=== PATIENT | female | born 1990 | race Caucasian/White ===

== ENCOUNTER 2019-10-24 14:36 | Inpatient (IN) ==
--- NOTE | 2019-10-24 17:02 | History & Physical Report ---
OB - H&P: HPI Antepartum - History of Present Illness Chief complaint: contractions History of present illness: 29 yo (prior twin ) @ 38 2/ presented with complaint of contractions and diagnosis of active labor. care through [facility] in [place], and records unavailable at time of presentation or delivery. Patient reports a history of a previous CS with G1 , and was scheduled for an elective repeat CS on 10/29/19. She had a appointment earlier today but was not checked. A few hours after her appointment, she presented to [facility] with complaints of contractions and cervix was 8cm. She declined to and was being admitted for an immediate CS but cervix was complete and she was put into a delivery room. [facility] History I have reviewed the patient's past medical history: Yes *Have you ever received a pneumonia vaccine?: No *Have you received a flu vaccine this season?: No - *Social History Tobacco Type: cigarettes # Packs/Day (cigarettes): 1 Alcohol Intake: never Substance Use Type: denies use *Occupational Status:: employed *Travel in the last 8 weeks: None Family Hx:: No significant family history Review of Systems - Review of Systems CONSTITUTIONAL: no fever/chills HEENT: no oral lesions PULMONARY: no shortness of breath or difficulty breathing CV: no racing heart, palpitations or chest pain ABD: no abdominal pain, N/V : + contractions SKIN: no new rash or skin lesions EXT: no edema NEURO: no mental status changes PSYCH: no current anxiety/depression OB - H&P: Exam - Physical Exam Narrative: CONSTITUTIONAL: no acute distress HEENT: mucous membranes moist PULMONARY: breathing unlabored without audible wheezes CV: no tachycardia or visible JVD; normal LE peripheral pulses ABD: soft, NT/ND, no guarding. Gravid uterus. : cervix 8/100/+1 SKIN: no visible rash or lesions HEME: no lymphadenopathy EXT: 1+ edema LEs NEURO: alert/oriented, no altered mental status PSYCH: appropriate mood and demeanor without visible anxiety/depression NST: Basline: 130 Variability: moderate Accelerations: yes Decelerations: no Impression: Reactive, Category 1 OB - A/P Antepartum (1) 38 weeks gestation of Current visit: Yes Status: Acute (2) with care elsewhere Current visit: Yes Status: Acute (3) Active labor at term Current visit: Yes Status: Acute (4) Previous section Current visit: Yes Status: Acute (5) Anemia complicating Current visit: Yes Status: Acute (6) Tobacco smoking complicating Current visit: Yes Status: Acute - Additional Plan Additional Information:: Admitted for active labor records request to primary MD Anticipate successful
--- NOTE | 2019-10-24 17:31 | Procedure Note ---
- Delivery Note Delivery Date:: 10/24/19 Delivery Time:: 15:24 Anesthesia Type: None Was labor medically induced?: No Induction method: none Gestational age (weeks): 38 delivered prior to 39 weeks?: Yes Justification for early elective delivery:: Active Labor Infant Gender: Male at 1 minute: 8 at 5 minutes: 9 LAC or MLE?: LAC Delivery Procedure:: Spontaneous vaginal delivery of liveborn male infant over intact perineum. Delivery uncomplicated Nuchal cord x1 reduced on perineum; no shoulder dystocia with delivery Infant taken to warmer immediately after umbilical cord clamped/cut, with standard nursing assessment performed Apgars: 8 & 9 Placenta spontaneously expressed and examined; noted to be complete/intact. Vulva, vagina, and cervix inspected; second degree laceration repaired with vicryl using lidocaine 1% without epi EBL: 300 cc All sponge/needle/instrument counts correct at conclusion of procedure Disposition: Mom/baby stable to recovery in LDRP Laceration:: vaginal Placental Delivery Description: Spontaneous
[2019-10-24 18:31] LABS: Basophils % 0.1 % (0.1-2.0); Eosinophils % 0.1 % (0.1-12.0); Hematocrit 30.9 % (37.0-47.0); Hemoglobin 9.4 g/dL (12.2-16.2); Lymphocytes # 0.9 K/mm3 (0.7-4.5); Mean Corpuscular HGB Conc 30.6 g/dL (31.8-35.4); Mean Corpuscular Volume 77.9 fl (81-99); Mean Platelet Volume 9.5 fl (7.4-10.4); Monocytes # 0.4 K/mm3 (0.1-1.0); Monocytes % 2.7 % (1.7-9.3); Neutrophils # 13.3 K/mm3 (1.8-7.8); Neutrophils % 91.1 % (37.0-80.0); Platelet Count 226 K/mm3 (142-424); Red Blood Count 3.96 M/mm3 (4.20-5.40); Red Cell Distribution Width 17.5 % (11.5-17.5); White Blood Count 14.5 K/mm3 (4.8-10.8)
[2019-10-24 18:57] LABS: Hypochromasia 3+; Lymphocytes % 6 % (10-50); Monocytes % 1 % (2-9); Neutrophils % 93 % (42-76); Total Cells Counted 100
[2019-10-24 19:31] LABS: Microscopic, Urine URINE MICROSCOPIC (MICROSCOPIC)
[2019-10-24 19:35] LABS: Appearance,Urine CLEAR (Clear); Blood, Urine Negative (Negative); Color,Urine YELLOW (Yellow); Glucose,Urine (UA) Negative (Negative); Ketones,Urine Negative (Negative); Leukocyte Esterase,Urine Negative (Negative); PH,Urine 6.5 (5.0-8.5); Protein,Urine TRACE (Negative)
[2019-10-24 19:36] LABS: Bilirubin,Urine Negative (Negative)
[2019-10-24 19:42] LABS: Amphetamine/Metha Screen,Urine Negative ng/mL (<1000); Barbiturates Screen,Urine Negative ng/mL (<200); Benzodiazepines Screen,Urine Negative ng/mL (<200); Cannabinoid Screen,Urine Negative ng/mL (<50); Cocaine Screen,Urine Negative ng/mL (<300); Methadone Screen,Urine Negative ng/mL (<300); Opiate Screen,Urine Negative ng/mL (<300); Phencyclidine Screen,Urine Negative ng/mL (<25)
[2019-10-24 19:47] LABS: Mucus,Urine 3+ /lpf
[2019-10-24 19:48] LABS: Bacteria,Urine Trace /lpf
[2019-10-25 06:32] LABS: Hemoglobin 6.6 g/dL (12.2-16.2)
[2019-10-25 08:09] LABS: Hematocrit 21.8 % (37.0-47.0)
--- NOTE | 2019-10-25 09:14 | Progress Note ---
Internal Medicine - PN: Subj *Date: 10/25/19 *Time: 09:11 Interval history: PPD #1 Acute on chronic anemia, with Hgb post-delivery 6.6 Patient is asymptomatic with current status but was advised for transfusion due to severe anemia hgb also likely overestimated due to patient smoking status Exam Vital signs and Labs for Last 24 Hours: Temp Pulse Resp BP Pulse Ox 98.4 F 58 L 16 135/82 99 10/25/19 04:40 10/25/19 04:40 10/25/19 04:40 10/25/19 04:40 10/25/19 04:40 Laboratory Results - last 24 hr 10/24/19 15:00: Urine Color Yellow, Urine Appearance Clear, Urine pH 6.5, Ur Specific Confluence 1.020, Urine Protein Trace, Urine Glucose (UA) Negative, Urine Ketones Negative, Urine Blood Negative, Urine Nitrate Negative, Urine Bilirubin Negative, Urine Urobilinogen 1.0, Ur Leukocyte Esterase Negative, Urine WBC 10- 20, Ur Squamous Epith Cells 5-10, Urine Bacteria Trace, Urine Mucus 3+ 10/24/19 15:00: Urine Opiates Screen Negative, Urine Methadone Screen Negative, Ur Barbituates Screen Negative, Ur Phencyclidine Scrn Negative, Ur Amphetamines Screen Negative, U Benzodiazepines Scrn Negative, Urine Cocaine Screen Negative, U Marijuana (THC) Screen Negative 10/24/19 18:22: WBC 14.5 H, RBC 3.96 L, Hgb 9.4 L, Hct 30.9 L, MCV 77.9 L, MCH 23.8 L, MCHC 30.6 L, RDW 17.5, Plt Count 226, MPV 9.5, Neut % (Auto) 91.1 H, Lymph % (Auto) 6.0 L, Atlantic % (Auto) 2.7, Eos % (Auto) 0.1, Baso % (Auto) 0.1, Neut # (Auto) 13.3 H, Lymph # (Auto) 0.9, Atlantic # (Auto) 0.4, Eos # (Auto) 0.0, Baso # (Auto) 0.0, Total Counted 100, Neutrophils % (Manual) 93 H, Lymphocytes % (Manual) 6 L, Monocytes % (Manual) 1 L, Platelet Estimate Normal, Hypochromasia 3+, Microcytosis 1+ 10/24/19 18:22: Blood Type O Positive, Antibody Screen Negative, Crossmatch (AHG) See Detail 10/25/19 06:08: Hgb 6.6 L* D, Hct 21.8 L* 10/25/19 08:58: Blood Type Confirm O Positive I & O for Last 24 hours: Intake & Output 10/22/19 10/23/19 10/24/19 10/25/19 11:59 11:59 11:59 11:59 Intake Total 1500 / 1500 Balance 1500 / 1500 Weight 150 lb Narrative: CONSTITUTIONAL: no acute distress HEENT: mucous membranes moist PULMONARY: breathing unlabored without audible wheezes CV: no tachycardia or visible JVD; normal LE peripheral pulses ABD: soft, NT/ND, no guarding : fundus firm at/below umbilicus SKIN: no visible rash or lesions EXT: 1+ edema LEs NEURO: alert/oriented, no altered mental status PSYCH: appropriate mood and demeanor without visible anxiety/depression Assessment and Plan (1) 38 weeks gestation of Current visit: Yes Status: Acute Category: Medical Code(s): Z3A.38 - 38 weeks gestation of (2) with care elsewhere Current visit: Yes Status: Acute Category: Medical Code(s): Z34.90 - Encounter for supervision of normal , unspecified, unspecified trimester (3) Active labor at term Current visit: Yes Status: Acute Category: Medical (4) Previous section Current visit: Yes Status: Acute Category: Surgical Code(s): Z98.891 - History of uterine scar from previous surgery (5) Anemia complicating Current visit: Yes Status: Acute Category: Medical Code(s): O99.019 - Anemia complicating , unspecified trimester (6) Anemia associated with acute blood loss Current visit: Yes Status: Acute Category: Medical Code(s): D62 - Acute posthemorrhagic anemia (7) Tobacco smoking complicating Current visit: Yes Status: Acute Category: Medical Code(s): O99.330 - Sm oking (tobacco) complicating , unspecified trimester - Assessment and plan all Dx Assessment and Plan for all problems:: Transfuse 2 units PRBCs, with repeat Hgb following transfusion Otherwise routine care
--- OUTSIDE RECORDS SUMMARY | 2019-10-25 10:48 | External Medical Summary | Continuity of Care Document ---
:1990 Author Organization [facility] Address [address] [place] [address] Phone Care Team Providers Name Role Phone Zachary Attending Provider Girma Paez Primary Care Provider Allergies, Adverse Reactions, Alerts No known allergies. Medications Medication Status Dose Units Route Sig Qty Days Start End Instruct ions Date Date Pnv Active 1 TAB Oral Daily October No.95/Ferrou 2018 s Fum/Folic 2:16am Ac Problems Active Problems Medical Problem Onset Date Status with care Active elsewhere Active labor at term Active 38 weeks gestation of Active Anemia complicating Active Tobacco smoking complicating Active Previous section Active Anemia associated with acute blood Activ e loss Chief Complaint and Reason for Visit Chief Complaint Labor Reason for Visit 38 weeks gestation of pregna ncy Active labor at term Anemia associated with acute blood loss Anemia complicating pregnanc y with care elsewhere Previous section Tobacco smoking complicating Encounters Encounter Location(s) Arrival/Admit Date Discharge/Depart Date Provider(s) Registered [facility] Physician October 24, 2019 [facility] 2:52pm MD Dilma Sanchez Registered [facility] Physician October 25, 2019 [facility] 10:44am Recent Diagnosis Onset Date 38 weeks gestation of Active labor at term Anemia associated with acute blood loss Anemia complicating with care elsewhere Previous section Tobacco smoking complicating Assessments Diagnosis Onset Date Resolution Status 38 weeks gestation of acute Active labor at term acute Anemia associated with acute acute blood loss Anemia complicating acute with acute care elsewhere Previous section acute Tobacco smoking acute complicating Functional Status No Functional Status information available Goals Goals may be documented in an alternate section. Mental Status No Mental Status Information Available Medical Equipment No Medical Equipment Information available Insurance Providers Guarantor Yamini Bach Pedro Address [address] [facility] [address] Contact Info. Home Phone: Payer Policy Id Coverage Id Subscriber's Subscriber Id Effective E xpiration Name Date Date Bakari [id number] Jesus Santos [id number] Blue Access Self Pay Self N/A Plan of Treatment Future Tests Future scheduled test information is unavailable Pending Tests Pending diagnostic test information is unavailable Future Visits Future appointment information is unavailable Referrals to Other Providers Reason for Referral Start Provider Provider Contact Provider Address Referral Date Information Admission to [facility] October [address] Future Procedures Future procedure information is unavailable Future Medications Future medication information is unavailable Patient Instructions Patient instructions are unavailable Social History Assigned Sex Female Vital Signs Vital Reading Result Reference Range Collection Date/ Time Height 165.1 cm October 24 3:00pm Weight 68.03 kg October 24 3:00pm Body Temperature 98.0 [degF] 97.6-99.6 October 25, 2 019 10:26am Heart Rate 58 /min 60-October 25 10:26am Respiratory rate 18 /min -October 25, 2 019 10:26am Oxygen saturation by 100 % 95-100 October Pulse oximetry 10:26am BP Systolic 136 mm[Hg] 110-140 October 25 10:26am BP Diastolic 82 mm[Hg] 60-90 October 25 10:26am BMI (Body Mass Index) 25.0 kg/m2 October 242018 3:00pm
[2019-10-25 14:51] LABS: Hematocrit 28.2 % (37.0-47.0)
[2019-10-25 14:55] LABS: Hemoglobin 8.7 g/dL (12.2-16.2)
[2019-10-26 06:52] LABS: Hematocrit 25.5 % (37.0-47.0)
--- NOTE | 2019-10-26 12:03 | Discharge Summary ---
General - General Admission date:: 10/24/19 Discharge date: 10/26/19 HPI HPI: PPD #2 precipitous care in [place]; records reviewed course complicated by [id number] anemia S/P transfusion 2 units PRBCs Post-transfusion Hgb 8.0, and she is asymptomatic with this anemia Planning to return to [facility] clinic for care and contraceptive needs Hospital Course Hospital Course: as per HPI Rhogam Administration: Not Indicated Objective Vital signs: Temp Pulse Resp BP Pulse Ox 98.6 F 59 L 18 133/72 98 10/26/19 07:41 10/26/19 07:41 10/26/19 07:41 10/26/19 07:41 10/26/19 07:41 Narrative: CONSTITUTIONAL: no acute distress HEENT: mucous membranes moist PULMONARY: breathing unlabored without audible wheezes CV: no tachycardia or visible JVD; normal LE peripheral pulses ABD: soft, NT/ND, no guarding : fundus firm at/below umbilicus SKIN: no visible rash or lesions EXT: 1+ edema LEs NEURO: alert/oriented, no altered mental status PSYCH: appropriate mood and demeanor without visible anxiety/depression Results Labs on day of discharge: Labs from last 24 hours 10/26/19 10/25/19 10/24/19 05:30 14:40 18:22 Hgb 8.0 L 8.7 L D Hct 25.5 L 28.2 L Blood Type O Positive Antibody Screen Negative Crossmatch (AHG) See Detail Preliminary micro results at discharge 10/24/19 15:00 Urine Culture - Preliminary Urine,Catheterized NO GROWTH AFTER 24 HOURS DS: Diagnosis - Discharge Diagnosis (1) 38 weeks gestation of Status: Acute (2) with care elsewhere Status: Acute (3) Active labor at term Status: Acute (4) Previous section Status: Acute (5) (vaginal after ) Status: Acute (6) Anemia complicating Status: Acute (7) Anemia associated with acute blood loss Status: Acute (8) Tobacco smoking complicating Status: Acute Discharge Plan - Patient Discharge Instructions ACTIVITY: Continue current activity DIET: regular diet Additional Instructions: nothing in the vagina for 6 weeks, no heavy lifting or strenuous activity. Patient Instructions: Depression, Hemorrhage, Vaginal After Section, [facility] Post Discharge Instructions - Follow up Plan Follow up with: Alexandre Ram [Referring] - (Call on Monday for 6 week follow up.) Disposition: Home, Self-Residential Medications: Home Medications Medication Instructions Recorded Confirmed Type Pnv No.95/Ferrous Fum/Folic AC 1 tab PO DAILY 10/25/19 10/25/19 History [ Caplet] Ibuprofen [Motrin 400mg 800 mg PO Q6HP PRN #30 tab 10/26/19 Rx tablet] Prescriptions/Medication Reconciliation: New Ibuprofen [Motrin 400mg tablet] 800 mg PO Q6HP PRN #30 tab PRN Reason: Mild To Moderate Pain Continued Pnv No.95/Ferrous Fum/Folic AC [ Caplet] 1 tab PO DAILY - Problem Reconciliation Problems Reviewed?: Yes
[2019-10-26 17:11] VITALS: BP 148/82
== END 2019-10-26 18:45 | disposition home or self-care (01) | DRG 807 ==
LOC: OBOUT 14:36 → OB 14:41
PROVIDERS: ADMIT Obstetrics & Gynecology; ATTEND Obstetrics & Gynecology
CPT/HCPCS: 36415; 59025; 80305; 81001; 85007; 85014; 85018; 85025; 86850; 87086; 90715; P9016

== ENCOUNTER 2020-08-18 12:02 | Emergency (ER) | payer OTHER, SELFPAY ==
[2020-08-18 12:51] VITALS: BP 126/80; PULSE 86; RESP 18; TEMP 36.8; O2SAT 99; BMI 22.3
--- NOTE | 2020-08-18 12:54 | HMH.EDUTC ---
[facility] Disposition Clinical Impression: Encounter for laboratory testing for COVID-19 virus Disposition: Home, Self-Care Condition on Discharge: Good Instructions: Preventing the Spread of Coronavirus Discharge Instructions Additional Instructions: You was tested for today for COVID19 your test result should be back tomorrow or , you may call back in the evening tomorrow or evening to see if your test results are back and the result You was given a handout with instructions for Self Quarantine and Self isolation for while you wait on test results and what to do if they are positive Return if needed No work until negative COVID test Referrals: Uli Martin MD [Primary Care Provider] - As needed Forms: Work/School Release Time of Disposition: 12:59 Medical Decision Making - hKurram Inquiry Pt receiving controlled substance: No Khurram was queried for this patient: No Vital Signs: 08/18/20 12:51 Temperature 98.2 F Temperature Source Oral Pulse Rate [Right Brachial] 86 Respiratory Rate 18 Blood Pressure [Right Arm] 126/80 Blood Pressure Mean [Right Arm] 95 Blood Pressure Source [Right Arm] Automatic Cuff Blood Pressure Position [Right Arm] Sitting 02 Sat by Pulse Oximetry 99 Oxygen Delivery Method Room Air Orders (Tests/Meds): ORDERS Category Date Time Status Covid-19 Nasal PCR Sendout [facility] 08/18/20 12:37 Ordered [facility] HPI - General Stated complaint: exposed to covid Time Seen by Provider: 08/18/20 12:54 Mode of Arrival: Ambulatory Source of Information: Patient Limitations: No Limitations Description of Symptoms (Recalled from Triage Doc. by RN): PATIENT NEEDING COVID TEST. 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 states that she has not been having any symptoms but they wanted them all to get tested - Related Data Home Medications Medication Instructions Recorded Confirmed Pnv No.95/Ferrous Fum/Folic AC 1 tab PO DAILY 10/25/19 07/20/20 [ Caplet] Previous Rx's Medication Instructions Recorded medroxyprogesterone 150 mg/mL 150 mg IM [id number] #1 ml 04/21/20 intramuscular suspension Allergies Allergy/AdvReac Type Severity Reaction Status Date / Time No Known Allergies Allergy Verified 07/20/20 09:39 - Worker's Comp Is this a Worker's Comp case?: No [facility] History - Hepatitis A Screen Drug use history?: No High risk sexual behaviors?: No History of sexually transmitted infection?: No Currently employed?: No Childcare worker?: No Do you have indoor plumbing?: Yes Do you have electricity?: Yes Attestation statement:: This patient has been screened for Hepatitis A risk factors. I have reviewed the patient's past medical history: Yes Other Surgeries: Yes: Amputation: No Fractures: No - Social History Smoking Status: Never smoker Tobacco Type: cigarettes # Packs/Day (cigarettes): 1 Alcohol Intake: never Substance Use Type: denies use Occupational Status: other Family Hx:: No significant family history ROS Obtained: Yes All systems reviewed & no additional complaints, Yes Systems reviewed as appropriate & no additional complaints - Constitutional Constitutional: Reports system reviewed and no additional complaints, except as docu, Denies body ache, Denies chills, Denies fever(s) - ENT Ears, Nose, Mouth, and Throat: Denies otalgia, Denies sinus pain, Denies sinus pressure, Denies sore throat - Cardiovascular Cardiovascular: Reports system reviewed and no additional compla
[2020-08-18 13:15] VITALS: BP 126/80; PULSE 86; RESP 18; TEMP 36.8; O2SAT 99
[2020-08-19 16:22] LABS: Covid-19 Nasal PCR Sendout Lex Not Detected
== END 2020-08-18 13:16 | disposition home or self-care (01) ==
PROVIDERS: Emergency Provider Nurse Practitioner; PCP Internal Medicine Adolescent Medicine
DX: Z20.828 Contact with and (suspected) exposure to other viral communicable diseases (principal); F17.210 Nicotine dependence, cigarettes, uncomplicated
CPT/HCPCS: 99201; U0004

== ENCOUNTER 2022-11-06 18:38 | Emergency (ER) | payer OTHER, SELFPAY ==
[2022-11-06 18:59] VITALS: BP 120/79; PULSE 80; RESP 16; TEMP 36.7; O2SAT 98; BMI 22.4
--- NOTE | 2022-11-06 19:04 | EXP.UTC ---
Discharge Plan Disposition Patient Disposition: Home, Self-Care Prescriptions Prescriptions: No Action medroxyprogesterone [Depo-Provera] 150 mg/mL suspension 150 mg IM [id number] Qty: 1 3RF PNV cmb#95-ferrous fumarate-FA 1 EACH tablet 1 tab PO DAILY Label Comments: pt reports ran out about a week ago Referrals Follow up/Referrals: Provider,Referral, MD [Primary Care Provider] - See instructions Clinical Impressions Clinical Impression: Encounter for test Instructions Patient Instructions: DI for -- Discomforts and Remedies, Home and Clinic Tests Discharge ED Provider: Lianna Billy [facility] HPI General Stated complaint: poss wants blood test Mode of Arrival: Ambulatory Source of Information: Patient Limitations: No Limitations Time Seen by Provider: 11/06/22 18:52 Description of Symptoms (Recalled from Triage Doc. by RN): pt comes in with request for blood test. pt states that she took an at home test and had a faint positive line. HEENT Symptoms (Recalled from RN notes): No Resp Symptoms (Recalled from RN notes): No Skin Symptoms (Recalled from RN notes): No MS Symptoms (Recalled from RN notes): No Functional Status (Recalled from RN notes): n/a History of Present Illness Provider Complaint: Pt states that she is trying to get . She states that her last period was 10/07/22. She took a home test last night and she relates it had a faint positive. She is here today requesting a blood test. Related Data Home Medications Medication Instructions Recorded Confirmed vit no.95-ferrous 1 tab PO DAILY Supplement 10/25/19 01/11/21 fumarate 28 mg-folic acid 800 mcg tablet Previous Rx's Medication Instructions Recorded medroxyprogesterone 150 mg/mL 150 mg IM [id number] #1 mL 04/21/20 intramuscular suspension (Depo-Provera) Allergies Allergy/AdvReac Type Severity Reaction Status Date / Time No Known Allergies Allergy Verified 11/06/22 19:02 Worker's Comp Is this a Worker's Comp case?: No [facility] Disclaimer: The information contained in this section may have been updated after the patient was seen, as this information can be updated by other users. Social History Smoking Status: Never smoker alcohol intake: never substance use type: denies use current occupational status: other Travel in the last 8 weeks: None ROS Obtained: Yes All systems reviewed & no additional complaints except as documented Constitutional Constitutional: Reports system reviewed and no additional complaints, except as documented Eyes Eyes: Reports system reviewed and no additional complaints, except as documented ENT Ears, Nose, Mouth, and Throat: Reports system reviewed and no additional complaints, except as documented Cardiovascular Cardiovascular: Reports system reviewed and no additional complaints, except as documented Respiratory Respiratory: Reports system reviewed and no additional complaints, except as documented Gastrointestinal Gastrointestingal: Reports system reviewed and no additional complaints, except as documented Genitourinary Female Genitourinary: Reports as per HPI and Reports amenorrhea Musculoskeletal Musculoskeletal: Reports system reviewed and no additional complaints, except as documented Integumentary/Breasts Skin/Breast: Reports system reviewed and no additional complaints, except as documented Neurologic Neurologic: Reports system reviewed and no additional complaints, except as documented Endocrine Endocrine: Reports system reviewed and no additional complaints, except as documented Hematologic/Lymphatic Henatologic/Lymphatic: Reports system reviewed and no additional complaints, except as documented Allergic/Immunologic Allergic/Immunologic: Reports system reviewed and no additional complaints, except as documented Physical Exam General General appearance: louann
[2022-11-06 19:12] VITALS: BP 120/79; PULSE 80; RESP 16; TEMP 36.7
[2022-11-06 19:33] LABS: HCG Qualitative, Serum Positive (Negative)
== END 2022-11-06 19:16 | disposition home or self-care (01) ==
PROVIDERS: Emergency Provider Nurse Practitioner Family
DX: Z32.01 Encounter for pregnancy test, result positive
CPT/HCPCS: 84703; 99212; G0463

== ENCOUNTER → 2022-11-07 10:23 | Outpatient (CLI) | payer OTHER, SELFPAY ==
[2022-11-07 13:17] LABS: HCG,Quantitative 347 mIU/ml (0-5.42)
== END ==
PROVIDERS: Visit Provider Obstetrics & Gynecology
DX: N92.6 Irregular menstruation, unspecified (principal); Z32.00 Encounter for pregnancy test, result unknown
CPT/HCPCS: 36415; 84702

== ENCOUNTER → 2022-12-05 11:33 | Outpatient (CLI) | payer OTHER, SELFPAY ==
[2022-12-05 12:06] LABS: Basophils % 0.6 % (0.1-2.0); Eosinophils # 0.1 K/mm3 (0.0-0.4); Eosinophils % 2.2 % (0.1-12.0); Hematocrit 40.7 % (37.0-47.0); Hemoglobin 13.9 g/dL (12.2-16.2); Lymphocytes # 1.5 K/mm3 (0.7-4.5); Lymphocytes % 22.9 % (10-50); Mean Corpuscular HGB Conc 34.1 g/dL (31.8-35.4); Mean Corpuscular Hemoglobin 29.6 pg (27.0-31.2); Mean Platelet Volume 7.9 fl (7.4-10.4); Monocytes # 0.3 K/mm3 (0.1-1.0); Monocytes % 4.3 % (1.7-9.3); Neutrophils # 4.6 K/mm3 (1.8-7.8); Neutrophils % 69.9 % (37.0-80.0); Platelet Count 233 K/mm3 (142-424); Red Blood Count 4.68 M/mm3 (4.20-5.40); Red Cell Distribution Width 13.2 % (11.5-17.5); White Blood Count 6.6 K/mm3 (4.8-10.8)
[2022-12-06 11:39] LABS: Rapid Plasma Reagin Ab Titer Non Reactive (NonRea<1:1)
[2022-12-06 22:12] LABS: HIV Screen 4th Generation wRfx NON REACTIVE; Hepatitis B Surface Antigen NEGATIVE; Hepatitis C Antibody <0.1
== END ==
PROVIDERS: Visit Provider Obstetrics & Gynecology
DX: Z34.90 Encounter for supervision of normal pregnancy, unspecified, unspecified trimester (principal)
CPT/HCPCS: 36415; 85025; 86593; 86703; 86762; 86850; 87086; 87340; 87380; G0432

== ENCOUNTER → 2023-01-30 13:34 | Outpatient (CLI) | payer OTHER, SELFPAY ==
--- NOTE | 2023-01-30 13:35 | US_ITS ---
FINAL REPORT CLINICAL HISTORY: pt. with twins/ cervical length FINDINGS: US TRANSVAGINAL Limited transvaginal images were obtained of the pelvis. The cervix measures 2.7 cm in length. IMPRESSION: 2.7 cm cervix. Reviewed, Interpreted and Dictated by Rivera Lopez III, MD Transcribed by Eduardo Andino Authenticated and [facility]
== END ==
PROVIDERS: PCP Obstetrics & Gynecology; Visit Provider Obstetrics & Gynecology
DX: O30.009 Twin pregnancy, unspecified number of placenta and unspecified number of amniotic sacs, unspecified trimester (principal); Z36.86 Encounter for antenatal screening for cervical length
CPT/HCPCS: 76817

== ENCOUNTER → 2023-04-10 09:13 | Outpatient (CLI) | payer OTHER, SELFPAY ==
[2023-04-10 10:04] LABS: Basophils % 0.2 % (0.1-2.0); Eosinophils # 0.1 K/mm3 (0.0-0.4); Eosinophils % 1.2 % (0.1-12.0); Hematocrit 30.6 % (37.0-47.0); Hemoglobin 9.8 g/dL (12.2-16.2); Lymphocytes # 1.1 K/mm3 (0.7-4.5); Lymphocytes % 12.9 % (10-50); Mean Corpuscular Hemoglobin 26.8 pg (27.0-31.2); Mean Corpuscular Volume 83.8 fl (81-99); Mean Platelet Volume 8.1 fl (7.4-10.4); Monocytes # 0.4 K/mm3 (0.1-1.0); Monocytes % 4.3 % (1.7-9.3); Neutrophils # 6.9 K/mm3 (1.8-7.8); Neutrophils % 81.4 % (37.0-80.0); Platelet Count 179 K/mm3 (142-424); Red Blood Count 3.65 M/mm3 (4.20-5.40); Red Cell Distribution Width 16.1 % (11.5-17.5); White Blood Count 8.4 K/mm3 (4.8-10.8)
[2023-04-10 11:14] LABS: Glucose,Fasting 86 mg/dl (74-100)
[2023-04-10 12:01] LABS: Glucose 1 Hour 100 mg/dL (74-100)
== END ==
PROVIDERS: Visit Provider Obstetrics & Gynecology
DX: Z34.90 Encounter for supervision of normal pregnancy, unspecified, unspecified trimester (principal); Z3A.20 20 weeks gestation of pregnancy
CPT/HCPCS: 36415; 82951; 85025

== ENCOUNTER 2023-06-28 04:50 | Inpatient (IN) | payer OTHER, SELFPAY ==
[2023-06-28] VITALS (30 sets, daily range): BP systolic 105–189; BP diastolic 55–107; PULSE 54–83; RESP 14–20; TEMP 35.9–43; O2SAT 95–100; BMI 27.6
[2023-06-28 05:47] LABS: Microscopic, Urine URINE MICROSCOPIC (MICROSCOPIC)
[2023-06-28 05:55] LABS: Basophils % 0.1 % (0.1-2.0); Eosinophils # 0.1 K/mm3 (0.0-0.4); Eosinophils % 0.9 % (0.1-12.0); Hematocrit 37.5 % (37.0-47.0); Hemoglobin 12.2 g/dL (12.2-16.2); Lymphocytes # 1.4 K/mm3 (0.7-4.5); Lymphocytes % 18.3 % (10-50); Mean Corpuscular HGB Conc 32.4 g/dL (31.8-35.4); Mean Corpuscular Hemoglobin 30.8 pg (27.0-31.2); Mean Corpuscular Volume 94.9 fl (81-99); Mean Platelet Volume 8.4 fl (7.4-10.4); Monocytes # 0.4 K/mm3 (0.1-1.0); Monocytes % 4.5 % (1.7-9.3); Neutrophils % 76.2 % (37.0-80.0); Platelet Count 127 K/mm3 (142-424); Red Blood Count 3.96 M/mm3 (4.20-5.40); Red Cell Distribution Width 17.7 % (11.5-17.5); White Blood Count 7.8 K/mm3 (4.8-10.8)
[2023-06-28 05:58] LABS: Alanine Aminotransferase 17 U/L (12-78); Albumin Level 3.4 g/dl (3.5-5.0); Alkaline Phosphatase 171 U/L (38-126); Anion Gap 11.7 mEq/L (5-15); Aspartate Amino Transferase 26 U/L (14-36); Bilirubin,Total 0.7 mg/dl (0.2-1.3); Blood Urea Nitrogen 5 mg/dl (7-17); Calcium 8.4 mg/dl (8.4-10.2); Carbon Dioxide 21 mmol/L (22.0-30.0); Chloride 108 mmol/L (98-107); Creatinine Clearance Estimated 190 mL/min (50-200); Estimated Glomerular Filt Rate 142 ml/min (>60); GFR (African American) 172 ML/MIN (>60); Globulin 3.3 g/dL (1.3-3.2); Glucose 83 mg/dl (74-100); Potassium 3.7 mmoL/L (3.5-5.1); Sodium 137 mmol/L (136-145); Total Protein,Serum 6.7 g/dl (6.3-8.2)
[2023-06-28 06:09] LABS: Appearance,Urine CLEAR (Clear); Blood, Urine Negative (Negative); Color,Urine YELLOW (Yellow); Glucose,Urine (UA) Negative (Negative); Ketones,Urine Negative (Negative); Leukocyte Esterase,Urine 2+ (Negative); Nitrate,Urine Negative (Negative); Protein,Urine TRACE (Negative); Specific Gravity, Urine 1.025 (1.005-1.030)
[2023-06-28 06:22] LABS: Amphetamine/Metha Screen,Urine Negative ng/ml (<1000); Barbiturates Screen,Urine Negative ng/ml (<200); Benzodiazepines Screen,Urine Negative ng/ml (<200); Cannabinoid Screen,Urine Negative ng/ml (<50); Cocaine Screen,Urine Negative ng/ml (<300); Opiate Screen,Urine Negative ng/ml (<300); Phencyclidine Screen,Urine Negative ng/ml (<25)
[2023-06-28 06:24] LABS: Bilirubin,Urine 1+ (Negative)
[2023-06-28 06:26] LABS: Bacteria,Urine 4+ /lpf; Mucus,Urine Trace /lpf; RBC,Urine Occasional #/hpf (0-3); WBC,Urine 20-50 #/hpf (0-3)
--- NOTE | 2023-06-28 06:58 | P.PNANES_ITS ---
[facility] Disclaimer: The information contained in this section may have been updated after the patient was seen, as this information can be updated by other users. Medical History Dichorionic diamniotic twin gestation Placenta previa Surgical History History of section Family History Other Anemia Asthma Social History Smoking Status: Never smoker alcohol intake: never substance use type: denies use current occupational status: other Travel in the last 8 weeks: None [facility] Anesthesia Checklist Patient Identification Patient Identification: Arm Band and Verbal (Name & ) Structural Data Admitted From: Inpatient Planned Operative Procedure/s: C/S (Twins) Consent for Planned Operative Procedure(s) Verified: Yes NPO Status Verified Time NPO: 00:00 Chart Verification Results Verified: CBC and BMP Additional verifications Patient : Yes Anesthesia Reactions: No Airway Assessment Mallampati Score:: Class I C-Spine Mobility Assessed: Yes TMJ Mobility Assessed: Yes Dentition: Poor Dentition Neurological Assessment Level of Consciousness: Awake Hx Seizures: No Numbness or tingling in extremities: No Anesthesia Plan Anesthesia Risk discussed: Yes Anesthesia Plan: Verified ASA Class: II Anesthesia Type: Spinal
--- NOTE | 2023-06-28 07:22 | EXP.OB.APHP ---
OB - H&P: HPI Antepartum History of Present Illness Chief complaint: Scheduled History of present illness: Ms Yamini Vasquez is a 33 yo at 37w2d with di di twin who presents to [facility] labor and delivery for scheduled repeat . History of x 2. She is complete with childbearing and desires permanent sterilization. Babies are active. No complaints or concerns. History of Present Criteria for establishing EDC:: based on 1st trimester US only care: good care Ultrasounds: normal mid trimester US Labs Blood type: O (+) positive Rubella: immune RPR/VDRL: nonreactive HBsAG: negative PFSH PFS Disclaimer: The information contained in this section may have been updated after the patient was seen, as this information can be updated by other users. Medical History (Updated 06/28/23 @ 07:27 by Lata White DO) 37 weeks gestation of Dichorionic diamniotic twin gestation Placenta previa Surgical History History of section Family History Other Anemia Asthma Social History Smoking Status: Never smoker alcohol intake: never substance use type: denies use current occupational status: unemployed Travel in the last 8 weeks: None Review of Systems Review of Systems Review of systems:: pertinent systems reviewed and negative unless documented below Meds Home Medications and Allergies Home Medications Medication Instructions Recorded Confirmed Type vit no.95-ferrous 1 tab PO DAILY Supplement 10/25/19 06/28/23 History fumarate 28 mg-folic acid 800 mcg tablet biotin 1 mg capsule 1 mg PO DAILY 12/05/22 06/28/23 History ferrous sulfate 325 mg (65 mg 325 mg PO BID anemia 06/28/23 06/28/23 History iron) tablet New Prescriptions to Start Prescriptions: Allergies Allergy/AdvReac Type Severity Reaction Status Date / Time banana Allergy Mild Verified 06/26/23 09:07 OB - H&P: Exam Physical Exam Vital signs: Temp Pulse Resp BP Pulse Ox O2 Del Method 98.2 F 69 18 115/65 97 Room Air 06/28/23 07:11 06/28/23 07:11 06/28/23 07:11 06/28/23 07:11 06/28/23 07:11 06/28/23 07:11 Constitutional no acute distress Routine HEENT Exam Head: Present normocephalic and atraumatic Eye: Absent conjunctivae pink ENT: Present mucous membranes moist Routine Neck Exam Present full ROM Routine Respiratory Exam Present CTA bilaterally and normal respiratory effort Routine Cardiovascular Exam Present RRR Routine Abdominal Exam Present soft (Gravid); Absent tenderness Routine Rectal Exam Patient deferred: visual exam Routine Exam External: Present normal urethra appearance; Absent erythema, tenderness, lesions or lacerations Routine Extremities Exam Present full ROM; Absent edema or calf tenderness Routine Neurological Exam Present alert, oriented X3 and moving all extremities Routine Psychiatric Exam Present normal affect and cooperative OB - Results Labs Labs: Short CBC 06/28/23 Range/Units 05:30 WBC 7.8 (4.8-10.8) K/mm3 Hgb 12.2 (12.2-16.2) g/dL Hct 37.5 (37.0-47.0) % Plt Count 127 L (142-424) K/mm3 BMP 06/28/23 05:30 Sodium 137 Potassium 3.7 Chloride 108 H Carbon Dioxide 21 L BUN 5 L Creatinine 0.50 L Glucose 83 Calcium 8.4 Liver Function 06/28/23 Range/Units 05:30 Total Bilirubin 0.7 (0.2-1.3) mg/dl AST 26 (14-36) U/L ALT 17 (12-78) U/L Alkaline Phosphatase 171 H (38-126) U/L Albumin 3.4 L (3.5-5.0) g/dl Urine 06/28/23 Range/Units 05:00 Urine Color Yellow (Yellow) Urine Appearance Clear (Clear) Urine pH 7.0 (5.0-8.5) Ur Specific [place] 1.025 (1.005-1.030) Urine Protein Trace (Negative) Urine Glucose (UA) Negati
--- NOTE | 2023-06-28 08:42 | EXP.OP.NOTE ---
Date of procedure: 06/28/23 Pre-op Diagnosis:: 1. IUP at 37w2d 2. Di/di twin gestation 3. History of x 2 4. Anemia of 5. Desires permanent sterilization Post-op Diagnosis:: 1. IUP at 37w2d 2. Di/di twin gestation 3. History of x 2 4. Anemia of 5. Desires permanent sterilization Procedure performed:: Repeat Low Transverse Section, bilateral partial salpingectomy Surgeon:: Lata White DO Clinical Trial Data Manager(s):: Jaycob Sanchez MD WIRE FRAME DIPPER:: Jonathon Kapadia Anesthesia: spinal Estimated blood loss (mL): 800 Clinical Note:: Ms Yamini Vasquez is a 33 yo at 37w2d with di di twin who presents to [facility] labor and delivery for scheduled repeat . History of x 2. She is complete with childbearing and desires permanent sterilization. Babies are active. No complaints or concerns. Operative findings:: 1. Live male baby, 6 lb 14 oz, APGARs 8, 9; Live female baby, 5 lb 14 oz, APGARs 8, 9 2. Grossly normal appearing uterus, bilateral fallopian tubes and ovaries Operative note:: The risks, benefits and alternatives of the procedure were reviewed with the patient. Informed consent was obtained. Patient was taken to the operating room where spinal anesthesia was placed. The patient received 2 grams of Ancef preoperatively. Patient was placed in dorsal supine position with a leftward tilt. SCDs in place. Garay catheter was inserted and draining clear urine prior to the start of the procedure. heart tones were obtained. Patient was then prepped and draped in normal sterile fashion. Allis clamp test was performed to ensure adequate anesthesia. A Pfannenstiel skin incision was made 2 cm above pubic symphysis, above prior Pfannenstiel scar. This was carried through to underlying layer of fascia. Fascia was incised in midline, extended laterally with Cagle scissors. Superior aspect of fascial incision was grasped with two Yady clamps, elevated up, and rectus muscle dissected off bluntly and sharply with Cagle scissors. Inferior aspect of fascial incision was grasped with two Yady clamps, elevated up, and rectus muscle dissected off bluntly and sharply with Cagle scissors.The retcus muscle was then in the midline and the peritoneum was entered bluntly with a digit. Peritoneal incision was then extended superiorly and inferiorly with good visualization of the bladder. Mandeep retractor was inserted. The lower uterine segment was incised in a transverse fashion. Clear amniotic fluid was noted. Baby A Head was delivered without difficulty. Remainder of body was delivered without difficulty. Mouth and nares were bulb suctioned. Spontaneous cry was noted. Delayed cord clamping was performed for 60 seconds. The umbilical cord was clamped and cut. The infant was handed to awaiting pediatric staff in stable condition. Apgars were 8(1 min), 9(5 min). Cord blood was obtained. Second amniotic sac as ruptured with Allis clamp. Clear amniotic fluid was noted. Baby B Head was delivered without difficulty. Remainder of body was delivered without difficulty. Mouth and nares were bulb suctioned. Spontaneous cry was noted. Delayed cord clamping was performed for 60 seconds. The umbilical cord was clamped and cut. The infant was handed to awaiting pediatric staff in stable condition. Dr. Petersen and Dr. Martin were present. Apgars were 8(1 min), 9(5 min). Cord blood was obtained. Gentle traction on the umbilical cord and uterine fundal massage delivered the placentas. Placentas was intact. Uterus was cleared of all clots and debris with a moist laparotomy sponge. Corners of the uterine incision were grasped with Allis clamps. The uterine incision was reapproximated with # 1 Vicryl suture in a running, locked stitch. Second layer of the same stitch was used to imbricate the incision. Vesicouterine peritoneum was reapproximated in a running locked stitch with 0-Vicryl suture. Hemostasis was noted. Posterior cul-de-sac wa
--- NOTE | 2023-06-28 08:47 | P.PNANES_ITS ---
[facility] Anesthesia Record Part I Anesthesia Record I Intake, IV Amount: 800 Hydration: Adequate Estimated blood loss (mL): 800 Urine output (mL): 100 Blood Pressure: 109/70 SaO2: 99 Pulse Rate: 57 Airway Patency: Patent Respiratory Rate: 14 Temperature: 97.5 F Pain scale (0-10): 3 Nausea: No Vomiting: No Patient is:: Awake Stable to PACU at:: 08:49
--- NOTE | 2023-06-28 10:07 | SUR.PHASEI ---
REBECCA Christianson notified MD White of QBL of 1100. Stated to hold off on methergine unless there was additional free flow during fundal rubs in PACU. MD White stated to perform all other QBL protocol interventions at this time. REBECCA Melton placed a 20g PIV in pt's LAC RN and REBECCA Pollard did one last final fundal rub and cleaned up patient chux and bedding from OR before taking her to OB. x2 chux were weighed with a weight of 333g, QBL spreadsheet updated and communicated to REEBCCA Rust at bedside q5min vitals performed on pt, during fundal rubs there was no free flow lochia noted by myself and fundus was noted slightly above the umbilicus and firm. Order for IM Methergine if significant free flow was to occur was passed on to Ashley Hinkle RN over the phone and was communicated to REBECCA Menendez at bedside
[2023-06-28 10:33] LABS: Basophils % 0.2 % (0.1-2.0); Eosinophils # 0.1 K/mm3 (0.0-0.4); Eosinophils % 1.1 % (0.1-12.0); Hematocrit 37.4 % (37.0-47.0); Hemoglobin 12.1 g/dL (12.2-16.2); Lymphocytes # 1.2 K/mm3 (0.7-4.5); Lymphocytes % 18.4 % (10-50); Mean Corpuscular HGB Conc 32.4 g/dL (31.8-35.4); Mean Corpuscular Hemoglobin 31.7 pg (27.0-31.2); Mean Corpuscular Volume 97.7 fl (81-99); Mean Platelet Volume 8.8 fl (7.4-10.4); Monocytes # 0.3 K/mm3 (0.1-1.0); Monocytes % 4.6 % (1.7-9.3); Neutrophils # 4.7 K/mm3 (1.8-7.8); Neutrophils % 75.7 % (37.0-80.0); Platelet Count 125 K/mm3 (142-424); Red Blood Count 3.83 M/mm3 (4.20-5.40); Red Cell Distribution Width 17.6 % (11.5-17.5); White Blood Count 6.3 K/mm3 (4.8-10.8)
--- NOTE | 2023-06-28 10:42 | EXP.ANES.II ---
[facility] Anesthesia Record Part II Anesthesia Record Part II Discharge Time: 09:19 Destination: Obstetric PACU nurse assessment reviewed?: Yes Patient Condition:: Good Anesthesia Complications:: None Swallowing reflex intact?: Yes Airway Patency: Patent Cyanosis?: No Blood Pressure: 148/77 SaO2: 99 Respiratory Rate: 15 Pulse Rate: 54 Temperature: 97.7 F Mental Status: Alert & Oriented Pain level:: 0 Nausea and/or vomitting:: None Intake, IV Amount: 0 Hydration: Adequate
[2023-06-28 10:47] LABS: Fibrinogen 448 mg/dL (229.9-363.5); Prothrombin Time 9.8 seconds (10.1-12.5)
--- NOTE | 2023-06-28 14:15 | PC.NURSE ---
PATIENT HAS RECEIVED 1000MCG OF CYTOTEC- PATIENT TEMP 102. SIDE EFFECT OF MEDICATION
[2023-06-28 14:25] LABS: Microscopic,Cath URINE MICROSCOPIC (MICROSCOPIC)
[2023-06-28 15:26] LABS: Appearance,Urine/Cath CLEAR (Clear); Bilirubin,Cath Negative (Negative); Blood, Urine/Cath Negative (Negative); Color,Urine/Cath YELLOW (Yellow); Glucose,Urine/Cath (UA) Negative (Negative); Ketones,Urine/Cath Negative (Negative); Leukocyte Esterase,Cath Negative (Negative); Nitrate,Cath Negative (Negative); Protein,Urine/Cath Negative (Negative)
[2023-06-28 15:56] LABS: Bacteria,Urine/Cath TRACE /lpf; WBC,Urine/Cath Occasional #/hpf (0-3)
[2023-06-28 18:56] LABS: Hematocrit 36.9 % (37.0-47.0); Hemoglobin 12.7 g/dL (12.2-16.2)
[2023-06-28 21:47] LABS: Methadone Screen,Urine Negative ng/ml (<300)
--- NOTE | 2023-06-29 05:32 | EXP.ACUTE.PN ---
Subjective *Date: 06/29/23 *Time: 05:32 Interval history: POD # 1 s/p RLTCS with BPS Resting comfortably in bed. Pain controlled. She is breast feeding. Reports light lochia. Voiding without difficulty and passing flatus. Tolerating regular diet. Denies fever/chills, chest pain and shortness of breath. No headaches or vision changes. No lower extremity edema. Ambulating well ad abilio. Medical Exam Vital signs and Labs for Last 24 Hours: Vital Signs Temp Pulse Pulse Resp BP BP Pulse Ox 06/28/23 20:00 98.3 F 63 17 111/59 L 95 06/28/23 16:05 100.1 F H 66 17 119/62 96 06/28/23 14:55 99.4 F 67 18 122/68 100 06/28/23 13:40 102 F H 71 17 115/77 100 06/28/23 12:47 99.5 F 72 18 112/60 98 06/28/23 14:55 99.5 F 74 17 120/58 L 99 06/28/23 14:40 100.0 F H 77 17 135/62 100 06/28/23 14:25 99.9 F H 80 18 120/63 100 06/28/23 14:10 99.1 F 71 17 128/61 100 06/28/23 14:05 99.1 F 72 18 118/70 100 06/28/23 14:00 100.0 F H 73 18 110/70 100 06/28/23 13:55 100.1 F H 79 17 108/55 L 99 06/28/23 13:50 100.8 F H 74 20 117/58 L 98 06/28/23 11:47 99.1 F 65 18 118/63 100 06/28/23 11:32 99.1 F 66 18 108/60 L 100 06/28/23 11:17 98.5 F 71 18 122/58 L 100 06/28/23 11:02 98.4 F 83 18 130/72 100 06/28/23 10:57 98.4 F 76 18 183/79 H 100 06/28/23 10:52 98.8 F 80 20 157/107 H 100 06/28/23 10:47 98.0 F 64 18 189/104 H 100 06/28/23 10:36 96.6 F L 63 18 139/90 99 06/28/23 09:14 60 18 126/78 100 06/28/23 09:04 56 L 18 105/68 L 100 06/28/23 08:54 55 L 16 111/72 100 06/28/23 09:19 54 L 15 148/77 H 99 06/28/23 09:09 54 L 16 117/69 99 06/28/23 08:59 56 L 18 107/70 L 96 06/28/23 08:49 97.7 F 56 L 17 109/70 L 99 06/28/23 07:11 98.2 F 69 18 115/65 97 06/28/23 08:49 97.5 F L 57 L 14 109/70 L 06/28/23 10:43 15 O2 Del Method 06/28/23 20:00 Room Air 06/28/23 16:05 06/28/23 14:55 06/28/23 13:40 06/28/23 12:47 06/28/23 14:55 06/28/23 14:40 06/28/23 14:25 06/28/23 14:10 06/28/23 14:05 06/28/23 14:00 06/28/23 13:55 06/28/23 13:50 06/28/23 11:47 06/28/23 11:32 06/28/23 11:17 06/28/23 11:02 06/28/23 10:57 06/28/23 10:52 06/28/23 10:47 06/28/23 10:36 06/28/23 09:14 Room Air 06/28/23 09:04 Room Air 06/28/23 08:54 Room Air 06/28/23 09:19 Room Air 06/28/23 09:09 Room Air 06/28/23 08:59 Room Air 06/28/23 08:49 Room Air 06/28/23 07:11 Room Air 06/28/23 08:49 06/28/23 10:43 Intake and Output 06/28/23 06/28/23 06/29/23 15:59 23:59 07:59 Intake Total 800 / 800 0 / 800 Output Total 2850 / 2850 Balance 800 / -2050 -2850 / -2050 Intake: Intake, Total IV Amount 800 / 800 Intake (Blood Product) Amt 0 / 0 0 / 0 Red Blood Cells Unit 0 / 0 [id number] Red Blood Cells Unit 0 / 0 0 / 0 [id number] Output: Output, Urine Amount 850 / 850 Output, Urine Amount (Catheter) 1999 Garay 1999 Other: Number of Bowel Movements 3 Laboratory Results - last 24 hr 06/28/23 05:00: Urine Color Yellow, Urine Appearance Clear, Urine pH 7.0, Ur Specific [place] 1.025, Urine Protein Trace, Urine Glucose (UA) Negative, Urine Ketones Negative, Urine Blood Negative, Urine Nitrate Negative, Urine Bilirubin 1+ A, Urine Urobilinogen 2.0, Ur Leukocyte Esterase 2+ A, Urine RBC Occasional, Urine WBC 20-50, Ur Squamous Epith Cells 10-20, Urine Bacteria 4+, Urine Mucus Trace, Urine Opiates Screen Negative, Urine Methadone Screen Negative, Ur Barbituates Screen Negative, Ur Phencyclidine Scrn Negative, Ur Amphetamines Screen Negative, U Benzodiazepines Scrn Negative, Urine Cocaine Screen Negative, U Marijuana (THC) Screen Negative 06/28/23 05:30: WBC 7.8, RBC 3.96 L, Hgb 12.2, Hct 37.5, MCV 94.9, MCH 30.8, MCHC 32.4, RDW 17.7 H, Plt Count 12
[2023-06-29 06:35] LABS: Basophils % 0.2 % (0.1-2.0); Eosinophils # 0.1 K/mm3 (0.0-0.4); Eosinophils % 1.1 % (0.1-12.0); Hematocrit 36.7 % (37.0-47.0); Hemoglobin 12.3 g/dL (12.2-16.2); Lymphocytes # 1.1 K/mm3 (0.7-4.5); Mean Corpuscular HGB Conc 33.4 g/dL (31.8-35.4); Mean Corpuscular Hemoglobin 30.9 pg (27.0-31.2); Mean Corpuscular Volume 92.6 fl (81-99); Mean Platelet Volume 8.6 fl (7.4-10.4); Monocytes # 0.5 K/mm3 (0.1-1.0); Neutrophils # 8.1 K/mm3 (1.8-7.8); Neutrophils % 82.7 % (37.0-80.0); Platelet Count 102 K/mm3 (142-424); Red Blood Count 3.96 M/mm3 (4.20-5.40); Red Cell Distribution Width 16.7 % (11.5-17.5); White Blood Count 9.8 K/mm3 (4.8-10.8)
[2023-06-29 08:53] VITALS: BP 98/55; PULSE 50; RESP 16; TEMP 36.4; O2SAT 99
[2023-06-29 09:19] LABS: Calcium, Ionized 4.6 mg/dL (4.5-5.6)
[2023-06-29 20:15] VITALS: BP 124/69; PULSE 56; RESP 18; TEMP 36.9; O2SAT 99
[2023-06-30 08:45] VITALS: BP 109/58; PULSE 60; RESP 16; TEMP 36.7; O2SAT 98
--- NOTE | 2023-06-30 15:07 | EXP.DC.SUM ---
General Admission date:: 06/28/23 Discharge date: 06/30/23 HPI HPI HPI: POD # 2 s/p RLTCS with BPS Resting comfortably. Pain controlled with PO medication. Light lochia. She is breast feeding. Voiding without difficulty and passing flatus. She is tolerating regular diet. Denies fever/chills, chest pain and shortness of breath. No headaches, dizziness of lightheadedness. Ambulating well ad abilio. Hospital Course Hospital Course Hospital Course: Ms Yamini Vasquez is a 33 yo at 37w2d with di di twin who presents to [facility] labor and delivery for scheduled repeat . History of x 2. She is complete with childbearing and desires permanent sterilization. Babies are active. No complaints or concerns. She underwent repeat low transverse section with bilateral partial salpingectomy on 06/28/23. She delivered a live male baby, 6 lb 14 oz with APGARs 8, 9 and a live female baby, 5 lb 14 oz, APGARs 8, 9. EBL 800. After returning to labor and delivery from recovery she continued to have vaginal bleeding. QBL reached 1800 cc. She was given TXA, methergine and IV fluids. She also received 2 units of PRBCs. POD # 1 H/H was 12.3/36.7. She did well postoperatively. Pain controlled. Breast feeding. Lochia appropriate on POD # 2. Vital signs stable, afebrile. Heart regular rate and rhythm. Lungs clear to auscultation. She was voiding without difficulty and passing flatus. Abdomen was soft, nontender and incision was clean/dry/intact. She was discharged home on POD # 2. Exam Data for Last 24 hours Vital signs and Labs for Last 24 Hours: Temp Pulse Resp BP Pulse Ox O2 Del Method 98.1 F 60 16 109/58 L 98 Room Air 06/30/23 08:45 06/30/23 08:45 06/30/23 08:45 06/30/23 08:45 06/30/23 08:45 06/30/23 08:45 I & O for Last 24 hours: Intake & Output 06/27/23 06/28/23 06/29/23 06/30/23 23:59 23:59 23:59 23:59 Intake Total 800 / 800 Output Total 2850 / 2850 Balance -2049 / -2049 Weight 165 lb 15.988 oz Microbiology Reports for the Last 24 Hours: Microbiology 06/28/23 05:00 Urine,Clean Catch Urine Culture - Final NO GROWTH AFTER 48 HOURS Constitutional Constitutional: no acute distress *Routine HEENT Exam Head: Present normocephalic and atraumatic Eye: Absent conjunctivae pink ENT: Present mucous membranes moist *Routine Neck Exam Neck: Present full ROM *Routine Respiratory Exam Respiratory: Present CTA bilaterally and normal respiratory effort *Routine Cardiovascular Exam Cardiovascular: Present RRR *Routine Abdominal Exam Abdominal: Present soft and normoactive bowel sounds; Absent tenderness or distended Comments: Uterine fundus firm and below umbilicus, pfannenstiel incision clean/dry/intact *Routine Rectal Exam Patient deferred: visual exam *Routine Exam Patient deferred: external exam *Routine Extremities Exam Extremities: Present full ROM; Absent edema or calf tenderness *Routine Neurological Exam Neurological: Present alert, oriented X3 and moving all extremities Routine Psychiatric Exam Psychiatric: Present normal affect and cooperative DS: Diagnosis Discharge Diagnosis (1) 37 weeks gestation of : Status: Acute Code(s): Z3A.37 - 37 weeks gestation of (2) S/P section: Status: Acute Code(s): Z98.891 - History of uterine scar from previous surgery (3) Dichorionic diamniotic twin gestation: Status: Acute Code(s): O30.049 - Twin , dichorionic/diamniotic, unspecified trimester Qualifiers: Trimester: third trimester Qualified Code(s): O30.043 - Twin , dichorionic/diamniotic, third trimester (4) hemorrhage: Status: Acute Code(s): O72.1 - Other immediate hemorrhage Qualifiers: hemorrhage type: unspecified Qualified Code(s): O72.1 - Other immediate hemorrhage
== END 2023-06-30 17:40 | disposition home or self-care (01) | DRG 784 ==
PROVIDERS: Admitting Provider Obstetrics & Gynecology; Visit Provider Obstetrics & Gynecology
PROC: 10D00Z1 Extraction of Products of Conception, Low, Open Approach (ICD-10-PCS; principal; 2023-06-28 07:30)
DX: O30.043 Twin pregnancy, dichorionic/diamniotic, third trimester (principal); O72.1 Other immediate postpartum hemorrhage; O99.02 Anemia complicating childbirth; Z37.0 Single live birth; Z30.2 Encounter for sterilization; Z3A.37 37 weeks gestation of pregnancy; Z37.2 Twins, both liveborn; O34.211 Maternal care for low transverse scar from previous cesarean delivery; N85.8 Other specified noninflammatory disorders of uterus
CPT/HCPCS: 59514; 58611; 59025; 80053; 80305; 81001; 82330; 85014; 85018; 85025; 85384; 85610; 85730; 86850; 87086; 88302; 88307; 94761; 96374; C9290; G0283; J2405; P9016